=== PATIENT | female | born 1935 | race Caucasian/White ===

== ENCOUNTER 2018-09-21 11:24 | Day surgery (SDC) | payer MEDICARE, OTHER ==
[2018-09-21 13:14] VITALS: TEMP 96.9
[2018-09-21] MEDS ORDERED: BUPIVACAINE HCL 0.25% MPF 30 ML SOL INFIL ONE (13:14)
[2018-09-21] MEDS ORDERED: DEXAMETHASONE SOD PHOS PF 10 MG/ML SOL IJ ONE (13:14)
[2018-09-21 13:28] VITALS: PULSE 92
[2018-09-21 13:50] VITALS: BP 150/76; RESP 20; O2SAT 95
== END 2018-09-21 14:02 | disposition home or self-care (01) | DRG 552 ==
LOC: SURG 11:24
PROVIDERS: ATTEND Nurse Anesthetist, Certified Registered
DX: M48.062 Spinal stenosis, lumbar region with neurogenic claudication (principal)
CPT/HCPCS: J1100